=== PATIENT | male | born 1995 | race Caucasian/White ===

== ENCOUNTER 2019-06-08 02:13 | Observation (INO) ==
[2019-06-08] MEDS ORDERED: HYDROmorphone INJ 0.5 MG/0.5 ML SYR IV STA (02:50)
[2019-06-08] MEDS ORDERED: ONDANSETRON INJ 2 MG/ML 2 ML VIAL IV STA (02:50)
[2019-06-08] MEDS ORDERED: SODIUM CHLORIDE 0.9% 1000ML 1,000 ML IV SCH (03:00)
[2019-06-08 03:07] LABS: Basophils # (auto) 0.02 K/uL (0-0.2); Basophils % (auto) 0.1 %; Eosinophils # (auto) 0.25 K/uL (0-0.5); Eosinophils % (auto) 1.4 %; Hematocrit (blood only) 45.9 % (42-52); Hemoglobin 15.8 g/dL (14.0-18.0); Immature Granulocytes # (auto) 0.06 K/uL (0.00-0.02); Immature Granulocytes % (auto) 0.3 %; Lymphocytes # (auto) 1.48 K/uL (1.2-3.4); Lymphocytes % (auto) 8.1 %; Mean Corpuscular Hemoglobin 31.5 pg (25-34); Mean Corpuscular Hgb Conc 34.4 g/dL (32-36); Mean Corpuscular Volume 91.4 fL (80-100); Mean Platelet Volume 10.5 fL (7.4-10.4); Monocytes # (auto) 1.43 K/uL (0.11-0.59); Monocytes % (auto) 7.8 %; Neutrophils # (auto) 15.09 K/uL (1.4-6.5); Neutrophils % (auto) 82.3 %; Platelet Count 368 K/uL (130-400); RDW Coefficient of Variation 12.5 % (11.5-14.5); RDW Standard Deviation 41.7 fL (36.4-46.3); Red Blood Count 5.02 M/uL (4.7-6.1); White Blood Count 18.33 K/uL (4.8-10.8)
[2019-06-08 03:28] LABS: Albumin Level 4.7 gm/dl (3.4-5.0); BUN Creatinine Ratio 13.9 (10-20); Creatinine Clr Calc Pharmacy 115.4 ml/min; Est GFR (African American) 134.4; Potassium 3.3 mmol/L (3.5-5.1)
[2019-06-08 03:31] LABS: Albumin Globulin Ratio 1.2 (0.9-2); Globulin 3.9 gm/dl (2.5-4.0); Total Protein 8.6 gm/dl (6.4-8.2)
[2019-06-08] MEDS ORDERED: IOVERSOL 100ml IV PRN (03:34)
[2019-06-08 04:12] LABS: Appearance Urine Clear (Clear); Bilirubin Urine Negative (Negative); Blood Urine Negative (Negative); Color Urine Yellow; Glucose Urine UA Negative (Negative); Ketones Urine Negative (Negative); Leukocyte Esterase Urine Negative (Negative); Nitrite Urine Negative (Negative); Protein Urine Negative (Negative); Urobilinogen Urine Negative (Negative)
[2019-06-08] MEDS ORDERED: MIDAZOLAM HCL 1 MG/ML 2ML VIAL ONE (04:48)
[2019-06-08] MEDS ORDERED: fentaNYL citrate 100 MCG/2 ML VIAL ONE ×2 (04:48→06:20)
[2019-06-08] MEDS ORDERED: BACITRACIN OINT 15 GM TUBE ONE (04:51)
[2019-06-08] MEDS ORDERED: BUPIVACAINE 0.5 % 5 MG/1 ML MPF 30ML VIAL ONE (04:51)
[2019-06-08] MEDS ORDERED: LIDOCAINE HCL 1% 20 ML VIAL ONE (04:51)
--- NOTE | 2019-06-08 04:56 | Anesthesiology Consultation ---
Date of Service June 08, 2019 Assessment & Plan (1) Encounter for pre-operative examination: Chart Review Chart Review: Acceptable Risk for Surgery History Surgery Operation Date: 06/08/19 05:30 Proposed Procedures p Laparoscopic Appendectomy - Bhavik Daniel MD Height/Weight Height: 6 ft Weight: 65.9 kg Allergies Allergy/AdvReac Type Severity Reaction Status Date / Time bee venom protein (honey bee) Allergy Severe Anaphylaxis Verified 06/08/19 02:50 nut - unspecified Allergy Severe Anaphylaxis Verified 06/08/19 02:50 Medications Home Medications Medication Instructions Recorded Confirmed Last Taken No Known Home Medications 06/08/19 06/08/19 Unknown Active Medications Generic Name Dose Route Start Last Admin Trade Name Freq PRN Reason Stop Dose Admin Ioversol 100 ml 06/08/19 03:34 06/08/19 03:34 Optiray 320 100ml IV 06/12/19 03:33 93 ml ONCE PRN Administration Interaction Checking NPO Date Last Intake of Fluids: 06/07/19 Time Last Intake of Fluids: 21:30 Date Last Intake of Solids: 06/07/19 Time Last Intake of Solids: 21:00 Last Intake of Solids Comment: ice cream Past Medical History Medical History No significant medical problems Past Surgical History Surgical History Hx of elbow surgery Social History Smoking Status: Never smoker Physical Exam Vital Signs Last Vital Signs Temp 36.9 C 06/08/19 02:16 Pulse 84 06/08/19 04:28 Resp 18 06/08/19 04:28 BP 134/82 06/08/19 04:28 Pulse Ox 97 06/08/19 04:28 Testing Laboratory Results 06/08/19 02:29 06/08/19 02:29 Urine Color Yellow 06/08/19 03:48 Urine Appearance Clear (Clear) 06/08/19 03:48 Urine pH 7.0 (4.5-7.5) 06/08/19 03:48 Ur Specific [place] 1.020 (1.000-1.030) 06/08/19 03:48 Urine Protein Negative (Negative) 06/08/19 03:48 Urine Glucose (UA) Negative (Negative) 06/08/19 03:48 Urine Ketones Negative (Negative) 06/08/19 03:48 Urine Nitrite Negative (Negative) 06/08/19 03:48 Ur Leukocyte Esterase Negative (Negative) 06/08/19 03:48
[2019-06-08] MEDS ORDERED: ATROPINE SULFATE 0.1 MG/ML 10ML SYR IV PRN (05:00)
[2019-06-08] MEDS ORDERED: ONDANSETRON INJ 2 MG/ML 2 ML VIAL IV PRN ×2 (05:00→06:14)
[2019-06-08] MEDS ORDERED: KETOROLAC 30 MG/ML VIAL IV PRN (05:00)
[2019-06-08] MEDS ORDERED: cefOXitin 2,000 MG/60 ML BAG IV STA (05:02)
--- NOTE | 2019-06-08 05:02 | Surgery Consultation ---
Date of Consultation June 08, 2019 Assessment & Plan (1) Acute appendicitis: pt is a 24 year-old male who presents with one day history RLQ pain, WBC 18,000 IMP: acute appendicitis Plan, I recommend to do laparoscopic appendectomy, possible open , D/W benefits, risk and alternatives of the surgery, the risks - infection, bleeding, abscess. pt understood, he agrees with the surgery, I answered all questions, History of Present Illness History of Present Illness CC: abdominal pain HPI: pt is a 24 year-old male who presents to ER with one day history RLQ pain with some nausea, no vomiting, the pain is located at RLQ, pt denies diarrhea, no fever, pt had CT scan at ER dx acute appendicitis. otherwise pt is healthy. Allergies Allergy/AdvReac Type Severity Reaction Status Date / Time bee venom protein (honey bee) Allergy Severe Anaphylaxis Verified 06/08/19 02:50 nut - unspecified Allergy Severe Anaphylaxis Verified 06/08/19 02:50 Home Medications Home Medications Medication Instructions Recorded Confirmed Type No Known Home Medications 06/08/19 06/08/19 History Patient History Medical History No significant medical problems Surgical History Hx of elbow surgery Social History Feels Safe at Home: Yes Smoking Status: Never smoker Review of Systems Review of Systems: All systems reviewed & are unremarkable except as noted in HPI & below Physical Exam Constitutional: WD/WN, vitals as above well developed and well nourished ENMT: external ear and nose normal, oropharynx normal Neck: trachea midline, no thyromegaly Respiratory: normal respiratory effort, lungs clear to auscultation Cardiovascular: RRR, no murmur, no edema Rate/Rhythm: regular rate and regular rhythm Heart Sounds: normal S1 and normal S2 Gastrointestinal (Abdomen): Percussion/Palpation: + abdomen tender and abdomen soft tenderness at RLQ, no rebound pain, no rigid, BS + Musculoskeletal: no cyanosis or clubbing, extremities motor strength 5/5 Skin: no rashes, warm and dry Neurologic: patellar DTR's 2+ bilat, sensation intact Psychiatric: Orientation: alert and oriented x 3 Results & Data Vital Signs (Past 12 Hours) Vital Signs Temp Pulse Pulse Resp BP BP Pulse Ox 06/08/19 04:28 84 18 134/82 97 06/08/19 03:48 85 16 147/81 H 99 06/08/19 02:16 36.9 C 100 H 16 126/65 96 Laboratory Results Abnormal lab results 06/08/19 06/08/19 Range/Units 02:29 02:29 WBC 18.33 H (4.8-10.8) K/uL MPV 10.5 H (7.4-10.4) fL Immature Gran # (Auto) 0.06 H (0.00-0.02) K/uL Neut # (Auto) 15.09 H (1.4-6.5) K/uL [place] # (Auto) 1.43 H (0.11-0.59) K/uL Potassium 3.3 L (3.5-5.1) mmol/L Glucose 105 H (70-99) mg/dl AST 13 L (15-37) U/L Total Protein 8.6 H (6.4-8.2) gm/dl Diagnostic Findings CT scan- acute appendicitis
--- NOTE | 2019-06-08 05:06 | History & Physical Bridge Note ---
Date of Service June 08, 2019 History & Physical Bridge Note I have examined the patient, reviewed the History & Physical and in the interval since the performance of the History & Physical I have noted the following changes of clinical significance: no changes noted
[2019-06-08] MEDS ORDERED: PROPOFOL IV EMULSION 10 MG/ML 20 ML VIAL IV ONE (05:50)
[2019-06-08] MEDS ORDERED: GLYCOPYRROLATE 0.2 MG/ML VIAL ONE (05:50)
[2019-06-08] MEDS ORDERED: NEOSTIGMINE METHYLSULFATE 5 MG/5 ML SYR ONE (05:50)
[2019-06-08] MEDS ORDERED: ONDANSETRON INJ 2 MG/ML 2 ML VIAL ONE (05:50)
[2019-06-08] MEDS ORDERED: ROCURONIUM BROMIDE 10 MG/ML 5 ML VIAL ONE (05:50)
[2019-06-08] MEDS ORDERED: LIDOCAINE HCL 2% 2 ML VIAL/AMP(20MG/ML) INFIL ONE (05:50)
[2019-06-08] MEDS ORDERED: METOCLOPRAMIDE HCL INJ 5 MG/ML 2 ML VIAL ONE (05:50)
--- NOTE | 2019-06-08 06:10 | Post Operative Brief Note ---
Immediate Post Op Note v1 Date of Surgery June 08, 2019 Pre & Post Diagnosis Operation Date: 06/08/19 05:30 Pre-Op Diagnosis: Acute appendicitis Post-Op Diagnosis: Acute appendicitis I identified the patient and participated in the time-out.: Yes Procedure Operation Date: 06/08/19 05:30 Actual Procedures p Laparoscopic Appendectomy - Bhavik Daniel MD Surgeon Bhavik Daniel MD Manager Beauty director medical surgical Estimated Blood Loss 10 Findings Consistent with Post-Op Diagnosis Fluids 1100ml Specimens appendix Anesthesia Type General Complications none Disposition Accompanied Patient To Recovery: Yes Disposition: Recovery Room Overlapping Procedure I was immediately available: during the entire case.
[2019-06-08] MEDS ORDERED: KETOROLAC 30 MG/ML VIAL ONE (06:20)
[2019-06-08] MEDS: fentaNYL citrate 100 MCG/2 ML VIAL IV PRN ×2 (06:22→06:30)
--- NOTE | 2019-06-08 06:27 | Anesthesiology Progress Note ---
Date of Service June 08, 2019 Anesthesia Post Procedure Vital Signs Vital Signs: Temp Pulse Pulse Resp BP BP Pulse Ox 06/08/19 04:28 84 18 134/82 97 06/08/19 03:48 85 16 147/81 H 99 06/08/19 02:16 36.9 C 100 H 16 126/65 96 Pain Intensity Abdomen: Pain Intensity: 3 Transfer of Care Handoff Completed per policy Notes Mental Status: alert / awake / arousable Patient Amnestic to Procedure: Yes Nausea / Vomiting: adequately controlled Pain: adequately controlled Airway Patency, RR, SpO2: stable & adequate BP & HR: stable & adequate Hydration State: stable & adequate Anesthetic Complications: no major complications apparent
--- NOTE | 2019-06-08 06:39 | Emergency Department Note ---
Entered by Tali Gonzales acting as a scribe for History of Present Illness General Chief complaint: Abdominal Pain Stated complaint: ABD PAIN Source: patient History of Present Illness Provider complaint: abdominal pain Onset (ago): hour(s) (8.5) 8 Location: back Maximum Pain Intensity: 5 Quality: + other (abdominal pain) Relieved By: + other (lying flat); not by medication Associated symptoms: + diaphoresis, + fever/chills (Positive chills; Negative fever) and + other (Negative unusual bowel movement; ); no chest pain, no nausea/vomiting and no shortness of breath Treatments prior to arrival: none (Tums) The patient, who is a 24 year old male with no significant medical history, presents to the Emergency Room with complaints of abdominal pain that started at 1800. The patient identifies that in his right lower quadrant and it explains that it is really dull. The patient states that his pain gets better when he is lying down and worsens with movement. The patient denies any other pain or associated symptoms. The patient's girlfriend states that the patient had chill and slight diaphoresis. The patient denies shortness of breath, unusual bowel movement, nausea or vomiting. The patient denies any heaving lifting. The patient's girlfriend states that she administered Tums but the patient states this did not relieve his symptoms. Home Medications Home Medications Medication Instructions Recorded Confirmed Type No Known Home Medications 06/08/19 06/08/19 History Allergies Allergy/AdvReac Type Severity Reaction Status Date / Time bee venom protein (honey bee) Allergy Severe Anaphylaxis Verified 06/08/19 02:50 nut - unspecified Allergy Severe Anaphylaxis Verified 06/08/19 02:50 Past Med/Surg History Medical History No significant medical problems Surgical History Hx of elbow surgery Social History Preferred Language: Fijian Communication Ability: Effective Evp And Chief Operating Officer Required: No Beliefs That Will Affect Care: None Current Living Situation: Significant Other Other Information That Helps Us Care for You: No Feels Safe at Home: Yes Safety Concerns: Feels Safe At This Time Smoking Status: Never smoker Do You Dip or Chew Tobacco: No ; Second Hand Exposure: No ; Tobacco Cessation Education Requested by Patient: No Hx Alcohol Use: Yes Hx Substance Use: No Review of Systems See HPI for pertinent positives & negatives. and A total of 10 systems reviewed and were otherwise negative Physical Exam Vital Signs Vital Signs - 24 hr 06/08/19 02:16 06/08/19 03:48 06/08/19 04:28 Temperature 36.9 C Temperature Source Oral Sepsis Recent Fever Within 48 Hours No Sepsis Action Taken by Nursing No Action Required Pulse Rate 100 H Pulse Rate [Right] 85 84 Pulse Rhythm [Right] Pulse Strength [Right] Respiratory Rate 16 16 18 Respiratory Effort / Characteristics Non-Labored Spontaneous Respiratory Depth Normal Respiratory Pattern Blood Pressure 126/65 Blood Pressure [Right Arm] 147/81 H 134/82 Blood Pressure Mean 85 Blood Pressure Mean [Right Arm] 103 99 Blood Pressure Position [Right Arm] Sitting Pulse Oximetry 96 99 97 Oxygen Delivery Method Room Air Room Air 06/08/19 06:15 06/08/19 06:25 06/08/19 06:35 Temperature 36.8 C Temperature Source Oral Sepsis Recent Fever Within 48 Hours Sepsis Action Taken by Nursing Pulse Rate Pulse Rate [Right] 84 71 66 Pulse Rhythm [Right] Regular Regular Regular Pulse Strength [Right] Normal Normal Normal Respiratory Rate 17 15 16 Respiratory Effort / Characteristics Non-Labored Non-Labored Non-Labored Respiratory Depth Normal Normal Normal Respiratory Pattern Regular Regular Regular Blood Pressure Blood Pressure [Right Arm] 118/65 110/53 L 112/59 L Blood Pressure Mean Blood Pressure Mean [Right Arm] 82 72 76 Blood Pressure Position [Right Arm] Lying Lying Lying Pulse Oximetry 99 100 96 Oxygen Delivery Method Room Air Room Air Room Air Vital signs reviewed. General: Well-appearing , in no significant distress. HEENT: No scleral icterus, PERRLA, neck supple. Atraumatic. Cardiovascular: Regular rate and rhythm, no extra sounds. Pulmonary: Clear to auscultation bilaterally, normal work of breathing. Abdomen: Soft, right lower quadrant tenderness, nondistended, positive bowel sounds. Musculoskeletal: Atraumatic, no peripheral edema. Neurologic: Patient awake alert and oriented x 3 Skin: Warm, dry, no rash Course 0239: Past medical records reviewed. The patient was evaluated in room B3. A complete history and physical exam was performed. 0239: The patient was administered Diluadid and Zofran. 0406: I reviewed the patient's case with Dr. Daniel, General Surgery. He will evaluate the patient for further management. Consultations Consultation #1: [id number]: I reviewed the patient's case with Dr. Daniel, General Surgery. He will evaluate the patient for further management. Time: 04:06 Administered Medications Discontinued Medications Bacitracin (Bacitracin) Confirm Administered Dose 45 appln .ROUTE .STK-MED ONE Stop: 06/08/19 04:52 Last Admin: 06/08/19 05:50 Dose: 45 appln Documented by: [id number] Bupivacaine HCl (Marcaine 0.5% Mpf) Confirm Administered Dose 30 ml .ROUTE .STK- MED ONE Stop: 06/08/19 04:52 Last Admin: 06/08/19 06:00 Dose: 10 ml Documented by: [id number] Fentanyl Citrate (Fentanyl Citrate) 25 mcg IV Q5M PRN PRN Reason: PACU Use Only-Pain Stop: 06/08/19 10:00 Last Admin: 06/08/19 06:30 Dose: 25 mcg Documented by: [id number] Admin: 06/08/19 06:22 Dose: 25 mcg Documented by: [id number] Fentanyl Citrate (Fentanyl Citrate) Confirm Administered Dose 100 mcg .ROUTE .STK-MED ONE Stop: 06/08/19 06:21 Last Admin: 06/08/19 06:34 Dose: Not Given Documented by: [id number] Hydromorphone HCl (Dilaudid) 0.5 mg IV NOW STA Stop: 06/08/19 02:51 Last Admin: 06/08/19 03:07 Dose: 0.5 mg Documented by: [id number] Sodium Chloride (Nss 1000ml) 1,000 mls @ 999 mls/hr IV .[id number] LUIS M Stop: 06/08/19 04:00 Last Infusion: 06/08/19 04:00 Dose: 0 mls/hr Documented by: [id number] Admin: 06/08/19 03:07 Dose: 999 mls/hr Documented by: [id number] Cefoxitin Sodium (Mefoxin) 2,000 mg in 60 mls @ 100 mls/hr IV NOW STA Stop: 06/08/19 05:37 Last Infusion: 06/08/19 07:34 Dose: 0 mls/hr Documented by: [id number] Admin: 06/08/19 05:14 Dose: 100 mls/hr Documented by: [id number] Lactated Ringer's (Lr) 1,000 mls @ 80 mls/hr IV .[id number] LUIS M Stop: 07/08/19 07:10 Last Infusion: 06/09/19 11:18 Dose: 80 mls/hr Documented by: [id number] Infusion: 06/09/19 10:28 Dose: 0 mls/hr Documented by: [id number] Admin: 06/09/19 06:00 Dose: 80 mls/hr Documented by: [id number] Infusion: 06/09/19 06:00 Dose: 80 mls/hr Documented by: [id number] Infusion: 06/09/19 03:40 Dose: 80 mls/hr Documented by: [id number] Infusion: 06/08/19 22:02 Dose: 80 mls/hr Documented by: [id number] Infusion: 06/08/19 21:25 Dose: 0 mls/hr Documented by: [id number] Infusion: 06/08/19 16:56 Dose: 80 mls/hr Documented by: [id number] Infusion: 06/08/19 16:09 Dose: 0 mls/hr Documented by: [id number] Admin: 06/08/19 16:06 Dose: 80 mls/hr Documented by: [id number] Infusion: 06/08/19 16:06 Dose: 80 mls/hr Documented by: [id number] Infusion: 06/08/19 15:00 Dose: 80 mls/hr Documented by: [id number] Admin: 06/08/19 07:00 Dose: 80 mls/hr Documented by: [id number] Cefoxitin Sodium 1,000 mg/ (Dextrose) 60 mls @ 100 mls/hr IV Q6H LUIS M Stop: 06/10/19 07:10 Last Infusion: 06/09/19 11:04 Dose: 0 mls/hr Documented by: [id number] Admin: 06/09/19 10:28 Dose: 100 mls/hr Documented by: [id number] Infusion: 06/09/19 03:40 Dose: 0 mls/hr Documented by: [id number] Admin: 06/09/19 03:01 Dose: 100 mls/hr Documented by: [id number] Infusion: 06/08/19 22:02 Dose: 0 mls/hr Documented by: [id number] Admin: 06/08/19 21:25 Dose: 100 mls/hr Documented by: [id number] Infusion: 11/07/19 16:55 Dose: 0 mls/hr Documented by: [id number] Admin: 06/08/19 16:06 Dose: 100 mls/hr Documented by: [id number] Infusion: 06/08/19 11:55 Dose: 0 mls/hr Documented by: [id number] Admin: 06/08/19 11:17 Dose: 100 mls/hr Documented by: [id number] Ioversol (Optiray 320 100ml) 100 ml IV ONCE PRN PRN Reason: Interaction Checking Stop: 06/12/19 03:33 Last Admin: 06/08/19 03:34 Dose: 93 ml Documented by: [id number] Ketorolac Tromethamine (Toradol) 30 mg IV ONCE PRN PRN Reason: PACU Use Only-Pain Stop: 06/08/19 10:01 Last Admin: 06/08/19 06:22 Dose: 30 mg Documented by: [id number] Ketorolac Tromethamine (Toradol) Confirm Administered Dose 30 mg .ROUTE .STK-MED ONE Stop: 06/08/19 06:21 Last Admin: 06/08/19 07:34 Dose: Not Given Documented by: [id number] Lidocaine HCl (Xylocaine 1% (Local)) Confirm Administered Dose 20 ml .ROUTE .STK-MED ONE Stop: 06/08/19 04:52 Last Admin: 06/08/19 06:01 Dose: 10 ml Documented by: [id number] Ondansetron HCl (Zofran) 4 mg IV NOW STA Stop: 06/08/19 02:51 Last Admin: 06/08/19 03:07 Dose: 4 mg Documented by: [id number] Medical Decision Making Differential Diagnosis Differential diagnosis includes: appendicitis, diverticulitis, PUD, biliary pathology, UTI, pancreatitis, obstruction, mesenteric ischemia, aortic pathology, infections, inflammatory bowel disease, renal colic, as well as others were entertained. Medical Records Attestation: I reviewed the patient's medical records. Home Medications Current Medication List: was personally reviewed by me Laboratory Data Attestation: I reviewed the patient's lab results. Result diagrams: 06/09/19 06:17 06/08/19 02:29 Lab Results 06/08/19 06/08/19 06/08/19 Range/Units 02:29 02:29 03:48 WBC 18.33 H (4.8-10.8) K/uL RBC 5.02 (4.7-6.1) M/uL Hgb 15.8 (14.0-18.0) g/dL Hct 45.9 (42-52) % MCV 91.4 (80-100) fL MCH 31.5 (25-34) pg MCHC 34.4 (32-36) g/dL RDW Std Deviation 41.7 (36.4-46.3) fL RDW Coeff of Dorian 12.5 (11.5-14.5) % Plt Count 368 (130-400) K/uL MPV 10.5 H (7.4-10.4) fL Immature Gran % (Auto) 0.3 % Neut % (Auto) 82.3 % Lymph % (Auto) 8.1 % [place] % (Auto) 7.8 % Eos % (Auto) 1.4 % Baso % (Auto) 0.1 % Immature Gran # (Auto) 0.06 H (0.00-0.02) K/uL Neut # (Auto) 15.09 H (1.4-6.5) K/uL Lymph # (Auto) 1.48 (1.2-3.4) K/uL [place] # (Auto) 1.43 H (0.11-0.59) K/uL Eos # (Auto) 0.25 (0-0.5) K/uL Baso # (Auto) 0.02 (0-0.2) K/uL Sodium 138 (136-145) mmol/L Potassium 3.3 L (3.5-5.1) mmol/L Chloride 101 (98-107) mmol/L Carbon Dioxide 30 (21-32) mmol/L Anion Gap 7.0 (3-11) BUN 13 (7-18) mg/dl Creatinine 0.92 (0.6-1.4) mg/dl Est Cr Clr Drug Dosing 115.4 ml/min Est GFR ( Amer) 134.4 Est GFR (Non-Af Amer) 116.0 BUN/Creatinine Ratio 13.9 (10-20) Glucose 105 H (70-99) mg/dl Calcium 10.0 (8.5-10.1) mg/dl Total Bilirubin 1.0 (0.2-1) mg/dl AST 13 L (15-37) U/L ALT 21 (12-78) U/L Alkaline Phosphatase 74 (45-117) U/L Total Protein 8.6 H (6.4-8.2) gm/dl Albumin 4.7 (3.4-5.0) gm/dl Globulin 3.9 (2.5-4.0) gm/dl Albumin/Globulin Ratio 1.2 (0.9-2) Lipase 80 (73-393) U/L Urine Color Yellow Urine Appearance Clear (Clear) Urine pH 7.0 (4.5-7.5) Ur Specific [place] 1.020 (1.000-1.030) Urine Protein Negative (Negative) Urine Glucose (UA) Negative (Negative) Urine Ketones Negative (Negative) Urine Blood Negative (Negative) Urine Nitrite Negative (Negative) Urine Bilirubin Negative (Negative) Urine Urobilinogen Negative (Negative) Ur Leukocyte Esterase Negative (Negative) Imaging Data Radiologist's Impression: Radiology results as stated below per my review and the radiologist's interpretation: CT Abdomen and Pelvis with Contrast: Acute retrocecal appendicitis measuring up to 13 mm in width. Adjacent stranding but no abscess or perforation/free air or bowel obstruction. No free fluid. No free air. Aorta, liver, spleen, pancreas, gallbladder, and kidneys are unremarkable. Radiologist: Mark Downs MD Study ready at 03:48 and initial results transmitted at 03:55 Blood Pressure Blood Pressure Findings: Normal blood pressure MDM Narrative This pt was evaluated and appeared to be in no distress. IV access was obtained and lab work was drawn. PT was placed on the cardiac care nurse. IVF were initiated and pt was medicated with IV dilaudid and zofran. CT imaging was performed and is indicative of acute appendiciitis. Pt was educated on the findings. Dr Daniel of general surgery evaluated the pt and took to OR for definitive management. Impression & Plan Acute appendicitis Discharge Plan Visit Data *Final* Discharge Date/Time: 06/08/19 04:50 Chief Complaint: Abdominal Pain Stated Complaint: ABD PAIN ED Provider: Pamela Lamas Discharge Problem: Acute appendicitis Patient Disposition: Admitted As Inpatient Condition: Good Discharge Instructions Interventions: ED Discharge Assessment Last Done: 06/08/19 04:48 Discharge Problem: Acute appendicitis Qualifiers: Acute appendicitis type: with localized peritonitis Appendicitis gangrene presence: without gangrene Appendicitis perforation presence: without perforation Appendicitis abscess presence: without abscess Qualified Code(s): K35.30 - Acute appendicitis with localized peritonitis, without perforation or gangrene The scribe's documentation has been prepared under my direction and personally reviewed by me in its entirety. I confirm that the note above accurately reflects all work, treatment, procedures, and medical decision making performed by me.
[2019-06-08] MEDS: LACTATED RINGER'S 1,000 ML IV SCH ×2 (07:00→16:06)
[2019-06-08] MEDS ORDERED: OXYCODONE/ACETAMINOPHEN 5mg/325mg TAB PO PRN (07:11)
[2019-06-08] MEDS ORDERED: HYDROmorphone INJ 0.5 MG/0.5 ML SYR IV PRN (07:11)
--- NOTE | 2019-06-08 07:13 | CT Scan Report ---
CT abd pelvis IV con only CLINICAL HISTORY: 24 years-old Male presenting with right lower quadrant pain, concern for appendicit is. TECHNIQUE: Multidetector CT of the abdomen and pelvis was performed after the administration of intra venous contrast. IV contrast: 93 mL of Optiray 320. One or more dose lowering techniques were used co nsistent with the principles of ALARA (as low as reasonably achievable), including automatic exposure control, mA or kV adjustment to individual patient size, and/or use of iterative reconstruction. COMPARISON: None. CT DOSE (mGy.cm): The estimated cumulative dose is 282.39 mGy.cm. FINDINGS: Mobile Disc Jockey topogram: Unremarkable. Lung bases: Normal heart size. No pericardial or pleural effusion. No focal infiltrate or nodule at t he lung bases. Liver: Normal morphology. Mildly heterogeneous enhancements centrally, nonspecific. No liver lesion. Patent hepatic vasculature. Biliary: No intrahepatic or extrahepatic biliary ductal dilatation. Normal gallbladder. Pancreas: Normal. Spleen: Normal. Adrenal glands: Normal. Kidneys and ureters: Normal. No hydronephrosis. Bladder: Normal. Pelvic organs: Prostate and seminal vesicles normal. Bowel: Dilated and hyperemic appendix with a thickened wall and extensive periappendiceal fat strandi ng. The appendiceal diameter measures at least 12 mm. No gross evidence of mucosal discontinuity. The appendix is fluid-filled. No extraluminal gas. No focal fluid collection adjacent to the appendix to suggest abscess. No bowel obstruction. No significant reactive inflammatory changes of the adjacent bowel. Peritoneal cavity: Trace free fluid in the pelvis is likely reactive. No free intraperitoneal gas. Lymph nodes: No enlarged lymph nodes in the abdomen or pelvis. Vasculature: Aorta and IVC patent and normal in caliber. Abdominal wall: Normal. Musculoskeletal: Normal. IMPRESSION: 1. Acute uncomplicated appendicitis. No evidence of abscess or perforation. Surgical consultation is necessary. These findings were preliminarily discussed with Dr. Lamas by Dr. Downs on 06/08/2019 3:59 AM. Electronically signed by: Liu Downs M.D. 06/08/2019 7:11 AM
--- NOTE | 2019-06-08 08:31 | Operative Report ---
DATE OF OPERATION: 06/08/2019 PREOPERATIVE DIAGNOSIS: Acute appendicitis. POSTOPERATIVE DIAGNOSIS: Acute appendicitis. PROCEDURE: Laparoscopic appendectomy. SURGEON: Bhavik Daniel MD. ANESTHESIA: General. ESTIMATED BLOOD LOSS: About 10 mL. FINDINGS: Acute appendicitis. COMPLICATIONS: None. INDICATIONS FOR THE PROCEDURE: This is a 24-year-old gentleman who presented to the ED with 1 day history of right lower quadrant pain. The patient had a CT scan diagnosis of acute appendicitis. I recommended to do laparoscopic appendectomy, possible open. I did talk to the patient about the benefit and risk, alternate procedure. I indicated the risks may include but not limited such as bleeding, infection, abscess. The patient understands. He signed informed consent and I answered all questions. DETAILS OF PROCEDURE: We brought the patient to the OR, put the patient in the supine position. The patient received SCD on bilateral legs to prevent DVT. Also, patient received 2 g cefoxitin IV for prophylactic antibiotic. The patient received general anesthesia without difficulties. Abdomen was prepped and draped in routine sterile fashion. After time out, I injected local anesthesia by using 1% lidocaine mixed with 0.5% Marcaine just above umbilicus, then made a small incision just above umbilicus, opened fascia and opened peritoneum and under direct vision put a Deep trocar in, connected to CO2 to create pneumoperitoneum. Flow rate at 6 liter per minute. Pressure not more than 14 mmHg. Once we got a nice pneumoperitoneum, we put the camera in, looked around the abdomen, shows normal finding on the small bowel, large bowel and at this moment, we put another two 5 mm trocar on the left lower quadrant and then we mobilized the cecum and found the patient has a retro- cecum location of the appendix. The appendix shows significantly larger inflammation, confirmed diagnosis of acute appendicitis, and then I used the harmonic to take down appendiceal, rechecked, no active bleeding. Then I used a 45 mm Endo-SHWETA staple transection on the base of the appendix, rechecked the staple line intact and no active bleeding, no leak. Then we removed the appendix through the catch bag then we reinserted Deep trocar in, connected to CO2 to create pneumoperitoneum, again looked around the abdomen, no active bleeding, no leak from the staple line. Then we removed all trocar under direct vision. No active bleeding from the trocar sites. Pneumoperitoneum was released. Then we closed the umbilical incision, fascial layer by using #1 Vicryl [id number] x2, closed subcutaneous layer by using 2-0 Vicryl interrupted, closed skin by using 4-0 Vicryl continuous running, closed another two 5 mm trocar site skin only by using 4-0 Vicryl. Then we put the dressing on. The patient tolerated the procedure well. All instrument, needle and sponge count were correct x2 at the end of the case. The patient transferred to recovery room in stable condition. The specimen sent to pathology. After procedure, I did talk to the patient and patient's family member about the OR finding and procedure we did, they understand. I attest to the content of the Intraoperative Record and any orders documented therein. Any exceptions are noted below. VERONICA
[2019-06-08 23:53] VITALS: O2SAT 97
[2019-06-09] MEDS: LACTATED RINGER'S 1,000 ML IV SCH (06:00)
[2019-06-09 06:52] VITALS: BP 116/64; TEMP 97.5
[2019-06-09 06:59] LABS: Basophils # (auto) 0.04 K/uL (0-0.2); Basophils % (auto) 0.4 %; Eosinophils % (auto) 3.3 %; Hematocrit (blood only) 41.6 % (42-52); Hemoglobin 14.2 g/dL (14.0-18.0); Immature Granulocytes # (auto) 0.02 K/uL (0.00-0.02); Immature Granulocytes % (auto) 0.2 %; Lymphocytes # (auto) 2.27 K/uL (1.2-3.4); Lymphocytes % (auto) 24.7 %; Mean Corpuscular Hemoglobin 31.4 pg (25-34); Mean Corpuscular Hgb Conc 34.1 g/dL (32-36); Mean Platelet Volume 10.2 fL (7.4-10.4); Monocytes % (auto) 13.1 %; Neutrophils # (auto) 5.35 K/uL (1.4-6.5); Neutrophils % (auto) 58.3 %; Platelet Count 331 K/uL (130-400); RDW Coefficient of Variation 12.5 % (11.5-14.5); RDW Standard Deviation 42.4 fL (36.4-46.3); Red Blood Count 4.52 M/uL (4.7-6.1); White Blood Count 9.18 K/uL (4.8-10.8)
[2019-06-09 12:42] VITALS: PULSE 85
--- NOTE | 2019-06-10 03:42 | Discharge Summary ---
ADMITTING DIAGNOSIS: Acute appendicitis. DISCHARGE DIAGNOSIS: Acute appendicitis. OPERATION: Laparoscopic appendectomy. SURGEON: Bhavik Daniel MD DETAILS OF DISCHARGE SUMMARY: This is a 24-year-old gentleman who presented to ED with 1 day history of right lower quadrant pain. The patient had a CT scan diagnosis of acute appendicitis. We took the patient to the OR. We did a laparoscopic appendectomy on 06/08/2019. The patient tolerated the procedure well. The patient is doing fine and the patient walked on the hallway. No nausea, no vomiting, no significant pain. He tolerated his diet. PHYSICAL EXAMINATION: VITAL SIGNS: Temperature is 36.4, heart rate is 68, respiratory rate 18, blood pressure 116/64, O2 saturation 97% on room air. GENERAL: The patient is alert, awake, oriented x3. HEENT: With normal limitation. NEUROLOGIC: Intact. NECK: No JVD. CHEST: Bilateral lung sounds clear. HEART: Normal S1, S2. No murmur. ABDOMEN: Soft, no distention. All dressing intact. No redness, no drainage from the incision site. Bowel sounds positive. EXTREMITIES: No edema. PLAN: The patient wanted to go home today. We gave the patient postop care instruction. The patient understands. I will follow up the patient in 1-2 weeks. The patient understands.
== END 2019-06-09 13:40 | disposition home or self-care (01) ==
LOC: ED 02:13 → 3N 04:50 → OR 04:50
DX: K35.30 Acute appendicitis with localized peritonitis, without perforation or gangrene